=== PATIENT | male | born 1940 | race African-American/Black ===

== ENCOUNTER 2016-12-21 09:48 | Emergency (ER) | payer MEDICARE, MEDICAID ==
[~2016-12-21] VITALS: Ht 175.3 cm; Wt 72.7 kg
[2016-12-21 10:10] VITALS: Ht 175.3 cm; Wt 72.7 kg
[2016-12-21] MEDS ORDERED: LORAZEPAM 2 MG INJ IV ONE (10:30)
[2016-12-21] MEDS ORDERED: ASPI-535 PO (10:44)
[2016-12-21] MEDS ORDERED: MONT10TA24 PO (10:44)
[2016-12-21] MEDS ORDERED: PANT40TA4 PO (10:44)
[2016-12-21] MEDS ORDERED: LEVE500T8 PO (10:44)
[2016-12-21] MEDS ORDERED: OXYB5TAB PO (10:44)
[2016-12-21] MEDS ORDERED: CARV3.1260 PO (10:44)
[2016-12-21] MEDS ORDERED: LISI20TA11 PO (10:44)
[2016-12-21] MEDS ORDERED: LEVE750T70 PO (11:20)
--- NOTE | 2016-12-21 11:25 | ERD ---
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 He has a long-standing seizure history. The patient is on hospice. The patient had a witnessed seizure this morning by family that was general tonic-clonic less than a minute. There was a brief postictal state for 15 minutes. The patient has no complaints of headache or any focal neurological complaints. The patient takes Keppra 500 mg a day according to the family. The patient has recently finished a course of antibiotics for pneumonia. They said his cough is much better. He has had no fevers. ROS All systems reviewed and are negative except as per history of present illness. Medications Home Meds Active Scripts Levetiracetam* (Keppra*) 750 Mg Tablet, 750 MG PO BID, #60 TAB Prov:LETITIA HERRERA DO 12/21/16 Reported Medications Levetiracetam* (Levetiracetam*) 500 Mg Tablet, 500 MG PO BID, TAB 12/21/16 Lisinopril* (Lisinopril*) 20 Mg Tablet, 20 MG PO DAILY, #30 TAB 12/21/16 Pantoprazole (Protonix) 40 Mg Tabec, 40 MG PO DAILY, TAB 12/21/16 Montelukast Sodium* (Montelukast Sodium*) 10 Mg Tablet, 10 MG PO QHS, #30 TAB 12/21/16 Oxybutynin Chloride (Oxybutynin Chloride ER) 5 Mg Tab.er.24, 5 MG PO DAILY, TAB 12/21/16 Aspirin Ec (Aspir 81) 81 Mg Tablet.dr, 81 MG PO DAILY, #30 TAB 12/21/16 Carvedilol* (Carvedilol*) 3.125 Mg Tablet, 3.125 MG PO BID, #60 TAB 12/21/16 Allergies Allergies: Coded Allergies: No Known Allergy (Unverified , 12/21/16) PMhx/Soc Hx Cardiac Disorders: Yes (HTN) Hx Miscellaneous Medical Probl: Yes (Cancer, left AKA) Hx Alcohol Use: No Hx Substance Use: No Hx Tobacco Use: No Smoking Status: Former smoker FmHx Family History: No coronary disease Physical Exam Vitals Vital Signs Date Time Temp Pulse Resp B/P Pulse Ox O2 Delivery O2 Flow Rate FiO2 12/21/16 10:10 84 25 194/99 96 12/21/16 10:10 84 25 194/99 96 Room Air Physical Exam Const: Well-developed, well-nourished Head: Atraumatic, normocephalic Eyes: Normal Conjunctiva, PERRLA, EOMI, normal sclera, no nystagmus ENT: Normal External Ears, Nose and Mouth, moist mucus membranes. Neck: Full range of motion. No meningismus, no lymphadenopathy. Resp: Clear to auscultation bilaterally, no wheezing, rhonchi, rales Cardio: Regular rate and rhythm, no murmurs, S1 S2 present Abd: Soft, non tender x 4, non distended. Normal bowel sounds, no guarding or rebound, no pulsitile abdominal masses or bruits Skin: No petechiae or rashes, no ecchymosis , no maculopapular rash Back: No midline or flank tenderness Ext: No cyanosis, or edema, FROM x 4, normal inspection, neurovascularly intact x 4 Neur: Awake and alert, STR 5/5 x 4, sensation intact x 4, no focal findings, cerebellum intact Psych: Normal Mood and Affect Results 24 hrs Current Medications Medications (Trade) Dose Ordered Sig/Willian Route PRN Reason Start Time Stop Time Status Last Admin Dose Admin Lorazepam (Ativan) 0.5 mg ONCE ONCE IV 12/21/16 10:30 12/21/16 10:31 DC 12/21/16 10:39 Procedures/MDM I will increase the patient's Keppra to 750 twice daily the family is here and they state they do not want a CAT scan of the brain. I discussed with them that the patient has a brain metastasis and needs a CAT scan to rule out brain edema or hemorrhage. The patient could have risk of impending there is a serious injury there. The family states they understand this and understand that there is a risk of but they do not want a CAT scan I just want to go back to hospice. They realize that they should not have been here according to them. He said they panicked and came her on accident but the patient should have stayed in the hospice I will increase the patient's Keppra to 750 twice daily Departure Diagnosis: Primary Impression: Seizure disorder Condition: Stable Patient Instructions: Seizure, Recurrent [Adult] Referrals: NO PRIMARY,CARE PHYSICIAN (PCP) Additional Instructions: stop old keppra dose LETITIA HERRERA DO Dec 21, 2016 11:25
[2016-12-21 11:34] VITALS: BP 181/97; PULSE 95; RESP 18
== END 2016-12-21 11:35 | disposition home or self-care (01) ==
LOC: E/R 09:48
DX: G40.909 Epilepsy, unspecified, not intractable, without status epilepticus (principal); I10 Essential (primary) hypertension; Z79.82 Long term (current) use of aspirin; Z85.841 Personal history of malignant neoplasm of brain; Z87.891 Personal history of nicotine dependence
CPT/HCPCS: 96374; 99284; J2060